=== PATIENT | male | born 1985 | race Caucasian/White ===

== ENCOUNTER 2019-08-27 21:46 | Emergency (ER) | payer OTHER ==
[~2019-08-27] VITALS: Ht 182.9 cm; Wt 112.7 kg
[2019-08-28 00:25] VITALS: BP 136/70; PULSE 80; TEMP 98
== END 2019-08-28 00:30 | disposition home or self-care (01) ==
LOC: COL.ER 21:46
DX: J20.9 Acute bronchitis, unspecified (principal); S29.011A Strain of muscle and tendon of front wall of thorax, initial encounter; G89.29 Other chronic pain; M54.2 Cervicalgia; F17.210 Nicotine dependence, cigarettes, uncomplicated

== ENCOUNTER 2020-06-20 00:44 | Emergency (ER) | payer OTHER ==
[~2020-06-20] VITALS: Ht 182.9 cm; Wt 113.6 kg
[2020-06-20 00:50] VITALS: TEMP 96.9
[2020-06-20] MEDS ORDERED: IMITREX50 MG PO (02:12)
[2020-06-20 02:15] VITALS: BP 132/72; PULSE 64
== END 2020-06-20 02:15 | disposition home or self-care (01) ==
LOC: COL.ER 00:44
DX: R51.9 Headache, unspecified (principal); H53.149 Visual discomfort, unspecified
CPT/HCPCS: J1200; J1630; J1885; J7030

== ENCOUNTER → 2021-05-06 | Outpatient (CLI) | payer OTHER ==
[~2021-05-06] MED LIST: IMITREX50 MG PO
== END ==
LOC: COL.LAB 05-05 15:37
DX: Z11.9 Encounter for screening for infectious and parasitic diseases, unspecified (principal)

== ENCOUNTER → 2023-06-12 | Outpatient (CLI) | payer OTHER ==
[~2023-06-12] MED LIST changes: +CRUTCHES MC; +FLEXERIL 1010 MG/TAB PO; +NORCO 325 MG-51 TAB PO
== END ==
LOC: COL.LAB 12:14
DX: Z11.9 Encounter for screening for infectious and parasitic diseases, unspecified (principal)